=== PATIENT | female | born 1955 | race Caucasian/White ===

== ENCOUNTER 2021-02-19 02:59 | Emergency (ER) | payer MEDICARE, OTHER ==
[~2021-02-19] VITALS: Ht 162 cm; Wt 98.1 kg
[2021-02-19 03:00] VITALS: BP 143/73
[2021-02-19] MEDS ORDERED: NS IV 1000 ML 1,000 ML IV STA (03:33)
[2021-02-19] MEDS ORDERED: meTOprolol 5 MG/5 ML (LOPRESSOR) VIAL IV STA (03:33)
--- NOTE | 2021-02-19 03:37 | ED Cardiac General ---
History of Present Illness General Chief Complaint: Cardiac/General Problems Stated Complaint: A-FIB Nursing Triage Note: Pt reports being in Afib since 0200 with HR ranging from 90-120s. Pt reports she took her 25mg Metoprolol at 11p and another 12.5mg at 0200 and stated "I just don't stay in it this long." Pt denies SOA or chest pain but does report chest "heaviness" Source: patient History of Present Illness Date Seen by Provider: Feb 19, 2021 Time Seen by Provider: 03:02 Initial Comments 66-year-old female presenting with complaints of atrial fibrillation. She stat es that she woke up around 2 AM and felt like her heart rate was in atrial fibrillation. She took an extra 12.5 mg of metoprolol at home. She still was not having improvement in her symptoms so she came here at 3 am. She has had longstanding atrial fibrillation that is paroxysmal but it has been a while since she had symptoms. However she has been taking some Tylenol Sinus and had to use her albuterol inhaler last night. Both of these are her certainly stimulant medications that can be affecting her heart rate. She has no shortness of breath or chest pain. She denies any cough. She has had some sinus congestion and drainage. Timing/Duration: 1-3 hours Severity: mild Activities at Onset: rest NTG SL WATER MAIN INSTALLER HELPER: No ASA po WATER MAIN INSTALLER HELPER: No Associated Systoms: No Chest Pain, No Cough, No Diaphoresis, No Fever/Chills, No Headaches, No Loss of Appetite, No Malaise, No Nausea/Vomiting, No Rash, No Seizure, No Shortness of Air, No Syncope, No Weakness Allergies and Home Medications Allergies Coded Allergies: No Known Drug Allergies (Unverified , 02/19/21) Patient Home Medication List Home Medication List Reviewed: Yes Review of Systems Review of Systems Constitutional: No chills, No dizziness, No fever EENTM: No Double Vision, No Ear Pain; Nose Congestion Respiratory: Denies Cough, Denies Shortness of Air, Denies SOA With Exertion, Denies SOA at Rest, Denies Stridor, Denies Wheezing Cardiovascular: Denies Edema; Irregular Heart Rate Gastrointestinal: Denies Nausea, Denies Vomiting Genitourinary: Denies Burning, Denies Frequency Musculoskeletal: no symptoms reported Skin: no symptoms reported Psychiatric/Neurological: Headache (Mild frontal sinus pressure) Past Yadxxkb-Vnudyi-Kpdtgi Hx Past Medical History Respiratory: Yes Asthma Cardiac: Yes Atrial Fibrillation Physical Exam Vital Signs Vital Signs - First Documented 02/19/21 03:00 Temp 36.8 Pulse 87 Resp 18 B/P (MAP) 143/73 (96) Pulse Ox 99 O2 Delivery Room Air Capillary Refill : Less Than 3 Seconds Height, Weight, BMI Height: '" Weight: lbs. oz. kg; BMI Method: General Appearance: No Apparent Distress, WD/WN HEENT: PERRL/EOMI, Pharynx Normal Neck: Full Range of Motion, Normal Inspection, Non Tender, Supple Respiratory: Chest Non Tender, Lungs Clear, Normal Breath Sounds, No Accessory Muscle Use, No Respiratory Distress Cardiovascular: Normal Peripheral Pulses, Irregularly Irregular, Tachycardia Gastrointestinal: Normal Bowel Sounds, No Pulsatile Mass, Non Tender, Soft Extremity: Normal Capillary Refill, Normal Inspection, No Pedal Edema Neurologic/Psychiatric: Alert, Oriented x3, shipping and receiving specialist II-XII Norm as Tested Skin: Normal Color, Warm/Dry Progress/Results/Core Measures Results/Orders Lab Results Laboratory Tests Test 02/19/21 03:35 Range/Units Prothrombin Time 12.4 12.2-14.7 SEC INR Comment 0.9 0.8-1.4 Activated Partial Thromboplast Time 31 24-35 SEC Sodium Level 136 135-145 MMOL/L Potassium Level 4.5 3.6-5.0 MMOL/L Chloride Level 101 98-107 MMOL/L Carbon Dioxide Level 24 21-32 MMOL/L Anion Gap 11 5-14 MMOL/L Blood Urea Nitrogen 18 7-18 MG/DL Creatinine 0.85 0.60-1.30 MG/DL Estimat Glomerular Filtration Rate 67 BUN/Creatinine Ratio 21 Glucose Level 104 70-105 MG/DL Calcium Level 9.3 8.5-10.1 MG/DL Corrected Calcium 9.3 8.5-10.1 MG/DL Magnesium Level 2.0 1.6-2.4 MG/DL Total Bilirubin 0.3 0.1-1.0 MG/DL Aspartate Amino Transf (AST/SGOT) 24 5-34 U/L Alanine Aminotransferase (ALT/SGPT) 21 0-55 U/L Alkaline Phosphatase 101 40-136 U/L Troponin I < 0.30 <0.30 NG/ML Total Protein 6.7 6.4-8.2 GM/DL Albumin 4.0 3.2-4.5 GM/DL My Orders Orders - SUSANNAH HANNA MD Ekg Tracing (02/19/21 03:12) Magnesium (02/19/21 03:33) Comprehensive Metabolic Panel (02/19/21 03:33) Protime With Inr (02/19/21 03:33) Partial Thromboplastin Time (02/19/21 03:33) Monitor-Rhythm Ecg Trace Only (02/19/21 03:33) Ed Iv/Invasive Line Start (02/19/21 03:33) Troponin I Fs (02/19/21 03:33) Metoprolol Tartrate Injection (Lopressor (02/19/21 03:33) Ns Iv 1000 Ml (Sodium Chloride 0.9%) (02/19/21 03:33) Ekg Tracing (02/19/21 04:15) Vital Signs/I&O 02/19/21 02/19/21 03:00 03:40 Temp 36.8 Pulse 87 79 Resp 18 17 B/P (MAP) 143/73 (96) 122/78 Pulse Ox 99 98 O2 Delivery Room Air Room Air Blood Pressure Mean: 96 Progress Progress Note #1: Progress Note With electrocardiogram showing atrial fibrillation and heart rate around 100 bpm will check labs to see if her electrolytes are off. We will also administer an additional 5 mg of IV metoprolol on top of which she is taking at home. Give some IV fluids for hydration. Progress Note #2: Progress Note Chemistry and coags appear stable without acute significant abnormality. Her heart rate and rhythm improved after about 45 minutes with medication. 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 Discussed results with the patient and spouse as she has showed normal sinus rhythm on repeat EKG discharged home. Encouraged to take an aspirin at least baby aspirin once a day until she can check with cardiology about direction on management and treatment. She stated that she has aspirin at home so she will take it there rather than take a dose from the ED. Advised to switch to Coricidin BP for management of sinus pressure and congestion instead of the Tylenol Sinus. Check back with her case management social worker. Return for worsening symptoms Initial ECG Impression Date: Feb 19, 2021 Initial ECG Impression Time: 03:02 Initial ECG Rate: 108 Initial ECG Rhythm: A Fib/Flutter Initial ECG Comparisson: No Previous ECG Available Comment Atrial fibrillation with a heart rate of 108 bpm. Low voltage in the precordial leads. Minimal ST depression in diffuse leads. No acute ST elevation. QT interval 367 ms with a QTc interval 492 ms. There is no prior tracing immediately available for comparison. EKG : EKG Time: 04:12 Rate: 52 Rhythm: Normal Sinus ECG Comparisson: Changed (Atrial fibrillation has now resolved and ST depression resolved.) Comment Sinus rhythm with a heart rate of 52 bpm. Low voltage in the precordial leads. TN interval [address] elevation. QT interval 464 ms with a QTc interval 432 ms. This is improved from the prior tracing done at 3:02 AM where she was having atrial fibrillation and diffuse ST depression. Departure Impression Primary Impression: Paroxysmal atrial fibrillation Disposition: HOME, SELF-CARE Condition: Stable Departure-Patient Inst. Decision time for Depature: 04:47 Referrals: SHEILA ANNE (PCP/Family) Primary Care Physician Patient Instructions: Atrial Fibrillation and Atrial Flutter ED Add. Discharge Instructions: Consider taking a baby aspirin once a day of this until you can check with her case management social worker about the paroxysmal atrial fibrillation. Try checking with cardiology today about the atrial fibrillation episode tonight. Consider taking Coricidin brand products for your sinus congestion allergy symptoms. This is less likely to interfere with your heart rate and medications. All discharge instructions reviewed with patient and/or family. Voiced understanding. SUSANNAH HANNA MD Feb 19, 2021 03:37
[2021-02-19 04:09] LABS: INR 0.9 (0.8-1.4); PROTHROMBIN TIME PATIENT 12.4 SEC (12.2-14.7)
[2021-02-19 04:24] LABS: CREATININE SERUM 0.85 MG/DL (0.60-1.30); POTASSIUM 4.5 MMOL/L (3.6-5.0)
[2021-02-19 04:25] LABS: BILIRUBIN,TOTAL 0.3 MG/DL (0.1-1.0); CALCIUM 9.3 MG/DL (8.5-10.1); TOTAL PROTEIN 6.7 GM/DL (6.4-8.2)
--- OUTSIDE RECORDS SUMMARY | 2021-02-23 10:27 | XMS REPORT | Clinical Summary ---
Author Author [facility] Organization [facility] Address Unknown Phone Unavailable Care Team Providers Care Auto Cleaner Name Role Phone Linda Cool APRN PCP Forrest Mireles MD Unavailable Source Comments Some departments are not documenting in the electronic medical record. If you d o not see the information that you expected, contact Release of Information in [facility] curated.by Information Management department at [phone] for further assistan ce in locating additional records.[facility] Allergies Comments Active Allergy Reactions Severity Noted Date Latex, Natural Rubber HIVES Medium 05/17/19 18 Medications End Date Status Medication Sig Dispensed Refills Start Date Active diltiazem CD (CARDIZEM take 1 0 04/10/05 05 CD) 240 mg capsule capsule by 5 oral route every day Active citalopram (CELEXA) 20 mg 3 tablet 8 Active hydroCHLOROthiazide take 1 0 (MICROZIDE) 12.5 mg capsule by 5 capsule oral route every day Active ugycnwlc-fme-VG-Ca Take once 0 carb-vit K (ONE-A-DAY daily 5 WOMEN'S 50 PLUS) 400 mcg-500 mg calcium-20 mcg tab Active clonazePAM (KLONOPIN) 0.5 take 0.5 0 /0 7/201 mg tablet Tablet by 5 ORAL route every bedtime as needed Active ascorbic acid (VITAMIN C) Take 500 mg 0 500 mg tablet by mouth daily. Active acetaminophen (TYLENOL) Take 650 mg 0 325 mg tablet by mouth every 4 hours as needed for Pain. Active MEDICAL SUPPLY, Use as 0 MISCELLANEOUS directed. 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 Pain in both lower extremities 05/18/2017 Surgical History Surgery Date Site/Laterality Comments SECTION 02/02/1990 - 03/03/1990 BREAST BIOPSY x 3 LAP CHOLECYSTECTOMY 04/04/2010 - 04/03/2011 Medical History Medical History Date Comments Abnormal heart rhythm Swelling of both lower extremities Family History Medical History Relation Name Comments Heart Disease Father Hypertension Father Stroke Father None Reported Maternal Grandfather None Reported Maternal Grandmother Heart Disease Mother Hypertension Mother Heart Disease Paternal Grandfather Heart Disease Paternal Grandmother Relation Name Status Comments Father Maternal Grandfather Maternal Grandmother Mother Alive Paternal Grandfather Paternal Grandmother Social History Date Tobacco Use Types Packs/Day Years Used Quit: 05/17/1977 Former Smoker Smokeless Tobacco: Never Used Comments Alcohol Use Standard Drinks/Week about once per year Yes 0 (1 standard drink = 0.6 o z pure alcohol) Alcohol Habits Answer Date Recorded How often do you have a drink containing alcohol? No t asked How many drinks containing alcohol do you have on No t asked a typical day when you are drinking? How often do you have six or more drinks on one Not asked occasion? Comment: about once per year 05/17/2017 Sex Assigned at Date Recorded Not on file Last Filed Vital Signs Reading Time Taken Comments Vital Sign - - Blood Pressure - - Pulse - - Temperature - - Respiratory Rate - - Oxygen Saturation - - Inhaled Oxygen Concentration 93 kg (205 lb) 05/17/2017 1:14 PM LAWN SPRINKLER INSTALLER Weight 162.6 cm (5' 4") 05/17/2017 1:14 PM LAWN SPRINKLER INSTALLER Height 35.19 05/17/2017 1:14 PM LAWN SPRINKLER INSTALLER Body Mass Index Plan of Treatment Health Maintenance Due Date Last Done Comments DTAP/TDAP VACCINES (1 - 02/09/1972 Tdap) HEPATITIS C SCREENING 02/09/1972 PHYSICAL (COMPREHENSIVE) 02/09/1972 EXAM BREAST CANCER SCREENING 1994 COLORECTAL CANCER 02/09/2004 SCREENING SHINGLES RECOMBINANT 02/09/2004 VACCINE (1 of 2) OSTEOPOROSIS 2019 SCREENING/MONITORING PNEUMONIA (PPSV23) 2019 VACCINE (1 of 1 - PPSV23) INFLUENZA VACCINE 11/02/2020 Results Not on filefrom Last 3 Months Advance Directives Patient Oyster Grower Explanation Type Date Recorded Advance Directive/DPOA Care Teams Start Date End Date Auto Cleaner Relationship Specialty 05/17/17 Linda Cool APRN PCP - General Nurse [address] [place] [address] 05/17/17 Forrest Mireles MD Vascular [address] [facility] [place], [place] [id number]
--- OUTSIDE RECORDS SUMMARY | 2021-02-23 10:28 | XMS REPORT | Encounter Summary ---
Author Author [facility] Organization [facility] Address Unknown Phone Unavailable Care Team Providers Care Sap Sd Analyst Name Role Phone TravisTawanna MARIBELL PCP Reason for Visit * Reason Onset Date Comments Atrial fibrillation 02/19/2021 Encounter Details Care Team Description Date Type Department Agustín Hanks RN Atrial fibrillation 02/19/2021 Telephone [facility] [address] [place] [address] Social History Date Tobacco Use Types Packs/Day Years Used Quit: 04/04/1984 Former Smoker Cigarettes 0.5 5 Smokeless Tobacco: Never Used Comments Alcohol Use Standard Drinks/Week No 0 (1 standard drink = 0.6 o z pure alcohol) Sex Assigned at Date Recorded Not on file documented as of this encounter Miscellaneous Notes * Telephone Encounter - Amelie Velasco RN ANP - 02/19/2021 1:16 PM AUTOMATIC DOOR MECHANIC She can stop metoprolol and start flecainide 50 mg bid if she'd like. This has b een discussed with her in the past as an option. She would need an EKG in 3-4 da ys after starting flecainide. MATIC DOOR MECHANIC * Telephone Encounter - Agustín Hanks RN - 02/19/2021 12:39 PM AUTOMATIC DOOR MECHANIC Pt called to report she woke approximately 2 am in AFIB with rates up to 130. S he took an extra metoprolol with no effect so she went to the ED locally. She s tates episode lasted 2.5-3 hours total. She was advised to follow up with this office. I have messaged the DIT team to request ED records. Pt confirms she is taking metoprolol tartrate only once daily typically. I advised I would inform Amelie and we would call with recs. MATIC DOOR MECHANIC documented in this encounter Plan of Treatment Care Team Description Date Type Specialty Amelie Velasco RN ANP [address] [facility] [address] [place] [address] 05/13/2021 Office Visit Cardiology documented as of this encounter Visit Diagnoses Not on filedocumented in this encounter Care Teams Start Date End Date Sap Sd Analyst Relationship Specialty 10/22/20 Tawanna Robles ARNP PCP - General Nurse [address] [place] [address] documented as of this encounter
--- OUTSIDE RECORDS SUMMARY | 2021-02-23 10:28 | XMS REPORT | Clinical Summary ---
Author Author [facility] Organization [facility] Address Unknown Phone Unavailable Care Team Providers Care Websphere Portal Developer Name Role Phone TravisTawanna MARIBELL PCP Allergies Comments Active Allergy Reactions Severity Noted Date Latex, Natural Rubber Hives Medium 05/17/19 18 Medications End Date Status Medication Sig Dispensed Refills Start Date Active clonazePAM (KLONOPIN) 0.5 take 0.5 1 0 MG tablet Tablet by 5 ORAL route every bedtime as needed Active glsyyutq-sel-BL-Ca Take once 1 0 04/10/2 01 carb-vit K (ONE-A-DAY daily 5 WOMEN'S 50+) 400 mcg-500 mg calcium-20 mcg Tab Active hydrochlorothiazide take 1 1 0 (MICROZIDE) 12.5 mg capsule by 5 capsule oral route every day Active acetaminophen (TYLENOL) Take 500 mg 0 500 MG tablet by mouth every 6 (six) hours as needed for pain. Active metoprolol tartrate TAKE 1 90 tablet 3 (LOPRESSOR) 25 MG tablet TABLET(25 MG) 1 BY MOUTH DAILY Active citalopram (CELEXA) 40 MG Take 40 mg by 0 tablet mouth daily. Active amoxicillin-clavulanate Take 1 tablet 0 (AUGMENTIN) 875-125 mg by mouth 2 1 per tablet (two) times a day. Active Problems Problem Noted Date Mild obstructive sleep apnea 06/04/2019 PSVT (paroxysmal supraventricular tachycardia) 06/03 Essential hypertension Venous insufficiency of both lower extr emities Obesity (BMI 30-39.9) Premature atrial contractions Palpitations Encounters Care Team Description Date Type Specialty Agustín Hanks RN Atrial fibrillation 02/19/2021 Telephone Cardiology from Last 3 Months Family History Medical History Relation Name Comments Other Brother 1 Diagnosed with RA, AFIB, celiac/splenic anuerysm Sleep apnea Brother 1 Sleep apnea Brother 2 Sleep apnea Brother 3 Sleep apnea Daughter Other Father Diagnosed with CVA, HTN,MN,afib Other Mother Diagnosed with Dysl ipidemia,HTN,CHF,RA, AFIB Other Sister Diagnosed with psor iatic arthritis Relation Name Status Comments Brother 1 Brother 2 Brother 3 Daughter Father Cause of was CHF at age 80. (Age 80) Mother Sister Social History Date Tobacco Use Types Packs/Day Years Used Quit: 04/04/1984 Former Smoker Cigarettes 0.5 5 Smokeless Tobacco: Never Used Comments Alcohol Use Standard Drinks/Week No 0 (1 standard drink = 0.6 o z pure alcohol) Sex Assigned at Date Recorded Not on file Last Filed Vital Signs Reading Time Taken Comments Vital Sign 128/72 11/12/2020 11:06 AM CDT Blood Pressure 58 11/12/2020 11:06 AM CDT Pulse - - Temperature 16 06/04/2019 12:56 PM [facility]OR [facility] Respiratory Rate 98% 06/04/2019 12:56 PM DIRECTOR [facility] Oxygen Saturation - - Inhaled Oxygen Concentration 98.6 kg (217 lb 6.4 oz) 11/12/2020 11:06 AM CDT Weight 162.6 cm (5' 4") 11/12/2020 11:06 AM CDT Height 37.32 11/12/2020 11:06 AM CDT Body Mass Index Plan of Treatment Care Team Description Date Type Specialty Amelie Velasco RN ANP [address] [facility] [address] [place] [address] 05/13/2021 Office Visit Cardiology Health Maintenance Due Date Last Done Comments Hepatitis C Screen 1955 Medicare Annual Wellness 1955 Td/Tdap# 1955 Zoster Vaccine# (1 of 2) 02/09/2004 Advance Care Plan 2019 Conversation Needed # Depression Screening 2019 PHQ-9 # Fall Risk Assessment # 2019 Osteoporosis Screening 2019 COVID-19 Vaccine (3 - 12/13/2020 06/12/2020, Booster for Moderna 05/15/2020 series) Influenza Vaccine (#1) 2021 01/14/2020, 03/07/2019, 03/07/2019, Additional history exists Mammogram Screening 10/27/2022 10/27/2020, 10/04/2019 Colorectal Screening via 11/07/2029 11/08/2019, Colonoscopy 11/08/2019 Pneumococcal Vaccine: 65+ Completed 02/10/2021, Years 03/07/2019 Results Not on filefrom Last 3 Months Insurance Type Payer Benefit Subscriber ID Effective Phone Address Plan / Dates Group Medicare MEDICARE MEDICARE [id number] 2019- [phone] WPS GHA PART A B Present ATTN CLAIMS DEPT [address] [place] [address] COMMERCIAL-NONCONTRACTED MISC [id number] 2019- [address] Present [id number] [place] [address] Advance Directives For more information, please contact: [phone] Patient Lobsterman Explanation Type Date Recorded Health Care Directive Care Teams Start Date End Date Websphere Portal Developer Relationship Specialty 10/22/20 Tawanna Robles ARNP PCP - General Nurse [address] [place] [address]
== END 2021-02-19 04:55 | disposition home or self-care (01) ==
LOC: EDUNIT# 02:59 → ER FS 03:02
DX: I48.0 Paroxysmal atrial fibrillation (principal); R00.0 Tachycardia, unspecified; J45.909 Unspecified asthma, uncomplicated
CPT/HCPCS: 36415; 80053; 83735; 84484; 85610; 85730; 93005; 93041; 96374

== ENCOUNTER 2021-10-24 15:11 | Emergency (ER) | payer MEDICARE, OTHER ==
[~2021-10-24] VITALS: Ht 162.5 cm; Wt 97.7 kg
[2021-10-24] MEDS ORDERED: TETANUS,DIPTH,PERTUSS P/F (BOOSTRIX) 0.5 ML VIAL IM ONE ×2 (15:45→18:02)
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
--- NOTE | 2021-10-24 16:28 | Diagnostic Imaging Report ---
CLINICAL HISTORY: Left hand injury. COMPARISON: None. TECHNIQUE: 3 views of the left hand. FINDINGS: There is no acute fracture or dislocation of the left hand. Alignment is anatomic. Advanced degenerative changes are seen in the left 1st CMC joint. Soft tissue edema is seen overlying the dorsum of the hand. IMPRESSION: 1. No acute fracture or dislocation of the left hand. 2. 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 Dictated by: Dictated on workstation # [id number]
--- NOTE | 2021-10-24 17:48 | ED Trauma-Multisystem ---
General Chief Complaint: Trauma-Non Activation Stated Complaint: FALL Nursing Triage Note: Patient c/o laceration to Lt. hand with pain to Lt. palm after fall today. Pt. states she was pulling a cart that had barbells in it. Pt. states the cart got caught on something. Pt. states she was hit in the back of her head by a barbell x 2. Pt. denies any LOC, visual changes, or N/V. Pt. states this happened about 20-25 minutes ago. Pt. has full ROM to Lt. fingers. Pt. denies any numbness or tingling to Lt. fingers. Lt. radial pulse strong to palpation. Neuro's intact, electrician underground strong and equal, No visual deficit, and bilat. LE are strong and equal. Speach clear. Source of Information: Patient Exam Limitations: No Limitations History of Present Illness Date Seen by Provider: Oct 24, 2021 Time Seen by Provider: 15:35 Initial Comments 66-year-old right-handed female patient presented POV to emergency room with complaining of head injury and left hand laceration. Patient states she was helping her daughter at her fitness facility and a metal bar of fitness equipment fell on top of her head and caught her left hand. Patient denies loss of consciousness but complaining of 2 area of edema in her scalp. Patient is not up-to-date with tetanus immunization. Allergies and Home Medications Allergies Coded Allergies: No Known Drug Allergies (Unverified , 02/19/21) Patient Home Medication List Home Medication List Reviewed: Yes Review of Systems Review of Systems Constitutional: see HPI Eyes: No Symptoms Reported Ears: No Symptoms Reported Nose: No Symptoms Reported Mouth: No Symptoms Reported Respiratory: no symptoms reported Cardiovascular: No Symptoms Reported Gastrointestinal: no symptoms reported Genitourinary: no symptoms reported Musculoskeletal: see HPI Skin: see HPI All Other Systems Reviewed Negative Unless Noted: Yes Past Scxkfby-Latjep-Txkfgp Hx Patient Social History Tobacco Use?: No Smoking Status: Never a Smoker Use of E-Cig and/or Vaping Andrews: Never a User Substance use?: No Alcohol Use?: No Pt feels they are or have been: No Immunizations Up To Date Second COVID19 Vaccination Kobi: Moderna in June 2020 Past Medical History Surgery/Hospitalization HX: HTN Gallbladder, Respiratory: Yes Asthma Cardiac: Yes Atrial Fibrillation Physical Exam Vital Signs Vital Signs - First Documented 10/24/21 15:18 Temp 36.4 Pulse 67 Resp 14 B/P (MAP) 147/66 (93) Pulse Ox 97 O2 Delivery Room Air Height, Weight, BMI Height: '" Weight: lbs. oz. kg; 36.00 BMI Method: General Appearance: No Apparent Distress, Mild Distress Head: Other (Right parietal and occipital scalp hematoma) Eyes: Bilateral Eye Normal Inspection, Bilateral Eye PERRL Ears, Nose, Throat: Hearing Grossly Normal, No Evidence of ENT Injury Neck: Full Range of Motion, Normal Inspection Cardiovascular: Regular Rate, Rhythm, No Edema, No Gallop, No JVD, No Murmur, Normal Peripheral Pulses Respiratory: Chest Non Tender, Lungs Clear, Normal Breath Sounds, No Accessory Muscle Use, No Respiratory Distress Gastrointestinal: Normal Bowel Sounds, No Organomegaly Back: Normal Inspection Extremity: Other (8 cm transverse linear laceration of dorsal side of left hand with mild bleeding, no neurovascular deficits or tendon injury.) Neurologic/Psychiatric: Oriented x3, No Motor/Sensory Deficits, Normal Mood/Affect Skin: Normal Color Lymphatic: No Adenopathy Procedures/Interventions Wound Location: Upper Extremities Other Wound Location Left hand Wound Length (cm): 8 Wound's Depth, Shape: superficial, linear Wound Explored: clean Irrigated w/ Saline (ccs): 250 Anesthesia: 1% Lidocaine Volume Anesthetic (ccs): 8 Wound Debrided: none Suture: Prolene Suture Size: 4-0 Number of Sutures: 8 Sterile Dressing Applied?: Yes Progress/Results/Core Measures Results/Orders My Orders Orders - MIKE GIRON MD Ct Head/Cervical Spine Wo (10/24/21 15:40) Hand 3 View Left (10/24/21 15:40) Dipht,Pertuss(Acell),Tet Adult (Boostrix (10/24/21 15:45) Rx-Hydrocodone/Apap 5-325 Mg (Rx-Vicodin (10/24/21 18:00) Dipht,Pertuss(Acell),Tet Adult (Boostrix (10/24/21 18:02) Medications Given in ED Current Medications Medications Dose Ordered Sig/Kali Route Start Time Stop Time Status Last Admin Dose Admin Acetaminophen/ Hydrocodone Bitart 1 ea Q6H PRN PO 10/24/21 18:00 10/24/21 18:10 DC 10/24/21 18:06 1 EA Diphtheria/ Tetanus/Acell Pertussis 0.5 ml ONCE ONCE IM 10/24/21 15:45 10/24/21 15:46 DC 10/24/21 18:04 0.5 ML Vital Signs/I&O 10/24/21 10/24/21 15:18 18:05 Temp 36.4 36.4 Pulse 67 69 Resp 14 14 B/P (MAP) 147/66 (93) 142/65 Pulse Ox 97 99 O2 Delivery Room Air Room Air Blood Pressure Mean: 93 Progress Progress Note : Progress Note Evaluation of patient in ER showed 66-year-old female patient with head injury and left hand laceration. CT head and cervical spine was unremarkable. Patient had 20 of scalp hematoma in the right side of her head. Patient has a laceration of right hand that was repaired with problem. Patient had tetanus immunization in ER. Plan discharge patient home with diagnosis of hand laceration and head injury with a scalp hematoma. Diagnostic Imaging Diagonstic Imaging: Xray Comments Left hand x-ray interpreted by me and did not show acute fracture or dislocation. CT Read Date: Oct 24, 2021 CT Results/Progress Notes CT head and cervical spine interpreted by radiologist and reviewed by me and showed: [facility], [place] NAME: MICHELLE LOU [facility] REC#: [id number] PT STATUS: REG ER : 1955 PHYSICIAN: MIKE GIRON MD ADMIT DATE: 10/24/21/ER FS Signed Date of Exam:10/24/21 CT HEAD/CERVICAL SPINE WO PROCEDURE: CT head and CT cervical spine without contrast. TECHNIQUE: Multiple contiguous axial images were obtained through the brain and cervical spine without the use of intravenous contrast. Sagittal and coronal reformations through the cervical spine were then performed. Auto Exposure Controls were utilized during the CT exam to meet ALARA standards for radiation dose reduction. INDICATION: Hit in the back of the head. Head and neck pain. COMPARISON: None. FINDINGS: CT head: No large acute territorial ischemia, mass or hemorrhage. No midline shift or mass effect. The ventricles, cortical sulci, and basilar cisterns are patent and unremarkable. The calvarium is intact. The visualized paranasal sinuses are clear. CT cervical spine: No acute fracture or dislocation is seen in the cervical spine. No focal osseous lesions. Vertebral body heights are well-maintained. The craniocervical junction is well maintained. Moderate degenerative changes are seen in the cervical spine with disc osteophyte complexes and uncovertebral arthropathy. Soft tissues of the neck are unremarkable. IMPRESSION: 1. No hemorrhage or focal intra-axial mass. No CT evidence of large acute territorial ischemia. 2. No acute fracture or dislocation in the cervical spine. Dictated by: Dictated on workstation # [id number] Dict: 10/24/21 1617 Trans: 10/24/21 162 [facility] [id number] Interpreted by: GALDINO SMITH DO Electronically signed by: GALDINO SMITH DO 10/24/211622 Departure Impression Primary Impression: Head injury Qualified Codes: S09.90XA - Unspecified injury of head, initial encounter Additional Impressions: Scalp hematoma Qualified Codes: S00.03XD - Contusion of scalp, subsequent encounter Laceration of left hand Qualified Codes: S61.412D - Laceration without foreign body of left hand, subsequent encounter Disposition: 01 HOME, SELF-CARE Condition: Improved Departure-Patient Inst. Decision time for Depature: 17:51 Referrals: SHEILA ANNE (PCP) Primary Care Physician [facility] (Family) Primary Care Physician Patient Instructions: HEAD [id number] WAKE-UP, Laceration Repair With Sti tches (DC) Add. Discharge Instructions: Drink plenty of liquid Apply ice on affected area in your head Suture removal in 10 days May take [id number] Tylenol or ibuprofen as needed for pain Take dispense hydrocodone 1 pill every 6 hours as needed for pain All discharge instructions reviewed with patient and/or family. Voiced understanding. MIKE GIRON MD Oct 24, 2021 17:48
[2021-10-24 18:05] VITALS: BP 142/65
== END 2021-10-24 18:05 | disposition home or self-care (01) ==
LOC: EDUNIT# 15:11 → ER FS 15:12
DX: S09.90XA Unspecified injury of head, initial encounter (principal); S00.03XA Contusion of scalp, initial encounter; S61.412A Laceration without foreign body of left hand, initial encounter; Z23 Encounter for immunization; W20.8XXA Other cause of strike by thrown, projected or falling object, initial encounter
CPT/HCPCS: 70450; 72125; 73130; 90715

== ENCOUNTER → 2021-11-11 | Outpatient (CLI) | payer MEDICARE, OTHER ==
--- NOTE | 2021-11-11 16:25 | Diagnostic Imaging Report ---
PROCEDURE: MRI left upper extremity without contrast. TECHNIQUE: Multiplanar, multisequence non contrast-enhanced MRI of the left upper extremity was accomplished. INDICATION: Crush injury of thumb. COMPARISON: Left hand radiographs from 10/24/2021. FINDINGS: At the site of focal swelling in the volar aspect of the thumb, there is a ovoid and gently lobulated T2 hyperintense, T1 slightly hyperintense collection measuring 9 x 15 x 18 mm. This is located in the subcutaneous fat superficial to the flexor pollicis longus. Imaging appears to suggest subacute hematoma. The flexor pollicis longus and brevis tendons are intact. There is mild tenosynovitis of the flexor pollicis longus within the palm of the hand, likely reactive in nature due to recent injury. The radial and ulnar collateral ligaments of the thumb MCP are intact. The adductor aponeurosis remains intact as well. Within the wrist, there appears to be some patchy bone marrow edema throughout the carpal bones and at the base of the metacarpals of the index and long fingers. 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 IMPRESSION: 1. Site of palpable concern corresponds to a well-circumscribed cystic collection in the subcutaneous fat of the thumb that has imaging features most suggestive of a subacute hematoma. If this does not resolve in the next 6-8 weeks, then biopsy may be warranted. 2. Patchy areas of bone marrow edema within the carpal bones may be due to areas of bone marrow edema with the patient's history of crush injury. No fractures are appreciated by MRI. 3. No tendon or ligament tear. Mild tenosynovitis of the flexor pollicis longus is likely reactive in nature due to recent injury. Dictated by: Dictated on workstation # [id number]
== END ==
LOC: RAD 12:30
PROVIDERS: ATTEND Nurse Practitioner Family
DX: M79.89 Other specified soft tissue disorders (principal); M79.645 Pain in left finger(s); T14.8XXA Other injury of unspecified body region, initial encounter
CPT/HCPCS: 73218